=== PATIENT | female | born 1955 | race Caucasian/White ===

== ENCOUNTER → 2016-11-21 | Outpatient (CLI) | payer BC ==
[~2016-11-21] MED LIST: ACETAMINOPHEN-H1 TA2 PO; CRESTOR10 MG PO; LOSARTAN POTASS1 TAB PO; OMEPRAZOLE40 MG PO; VITAMIN D1000 IU PO; ZOFRAN4 MG PO
--- NOTE | 2016-11-21 16:59 | RADIOLOGY REPORT PS360 ---
US RUQ-(ABD LTD)1ORGAN/QUAD/FU ORDERING PHYSICIAN : Umer Schuster MD PATIENT AGE: 61 years GENDER: Female INDICATION: RUQ PAIN TECHNIQUE ultrasound right upper quadrant COMPARISON: February 2012 ultrasound] quadrant FINDINGS Pancreas. Overall Satisfactory moderate size throughout. Liver. No focal lesions. No biliary ductal dilatation. GALLBLADDER.: Shadowing gallstones. These have developed since previous 2011 study. The largest measuring just less than 1.4cm. . This stone initially seen towards fundus, then shifted towards the neck of the gallbladder on the latter images. Other smaller stones are also evident Borderline/mild diffuse gallbladder wall thickening. Common duct appears normal., normal measuring 4 mm Right kidney 11.1 cm length with cortex well-maintained. No hydronephrosis nor mass. -------IMPRESSION CHOLELITHIASIS. Multiple shadowing gallstones have developed & become apparent since 2011 study Upper normal gallbladder wall thickness Common duct normal. Liver & pancreas unremarkable.
== END ==
LOC: RAD 07:53
DX: R10.11 Right upper quadrant pain (principal)

== ENCOUNTER → 2016-12-17 | Outpatient (CLI) | payer BC ==
--- NOTE | 2016-12-17 14:11 | RADIOLOGY REPORT PS360 ---
PROCEDURE: 2-D M-mode and color Doppler study INDICATIONS FOR THE TEST: Chest pain COPD Heart Murmur Tobacco Smoking Palpitations Fatigue+ Syncope Edema+ Hypertension+Diabetes Mellitus Rheumatic Fever SOB+CINTRON Obesity+Hyperlipidemia+ Family History HD Additional History Sleep apnea PATIENT INFORMATION HEIGHT: 61 WEIGHT: 248 GENDER: Female B/P: 143/81 2-D/M-MODE INTERPRETATION: 2-D MEASUREMENTS OBSERVED VALUES IN CMS Right Ventricular Dimension (RVDd) 2.0 Interventricular Septum (Thickness)(IVsd) 1.2 Left Ventricular Internal Dimensions(LVIDd) 4.7 Left Ventricular Posterior Wall (Thickness)(LVPWd) 1.1 Aortic Root 2.0 Aortic Cusp Separation 2.0 Left Atrial Dimensions (LAD) 3.5 2D 1. Left atrium is normal size, left ventricle is normal size, there is mild concentric left ventricular hypertrophy present, visually estimated to fraction 55% with no obvious regional wall motion abnormality. 2. The right atrium is normal size, right ventricle is mildly enlarged with normal contractility. 3. The aortic valve is minimally thickened and fibrosed consistent mild aortic sclerosis. 4. The mitral and tricuspid valve is structurally normal. 5. The pulmonic valve is not well visualized. 6. No significant pericardial effusion noted. DOPPLER INTERROGATION: Doppler interrogation of the aortic mitral and tricuspid presence of mild mitral and tricuspid regurgitation, tricuspid regurgitant jet velocity insufficient for calculation of the right ventricular systolic pressure, grade 1 diastolic dysfunction seen without tissue Doppler evidence of raised left atrial pressure. CONCLUSION: 1. Normal left ventricular size, mild concentric left ventricular hypertrophy, preserved left ventricular systolic function, visually estimated ejection fraction 55% with no obvious regional wall motion abnormality, grade 1 diastolic dysfunction seen without tissue Doppler evidence of raised left atrial pressure. 2. Mildly enlarged right ventricle with normal contractility. 3. Mild mitral and tricuspid regurgitation. 4. No significant pericardial effusion noted.
== END ==
LOC: RT 09:55
DX: G47.33 Obstructive sleep apnea (adult) (pediatric) (principal); R53.83 Other fatigue; R06.83 Snoring; E78.5 Hyperlipidemia, unspecified; I10 Essential (primary) hypertension

== ENCOUNTER → 2016-12-19 | Outpatient (CLI) | payer BC ==
[2016-12-19 09:53] LABS: BUN 17 mg/dL (7-18)
[2016-12-19 09:54] LABS: GFR (ESTIMATED) 72 ML/MIN (59-)
== END ==
LOC: LAB 09:22
PROVIDERS: Internal Medicine Cardiovascular Disease
DX: G47.33 Obstructive sleep apnea (adult) (pediatric) (principal); R53.83 Other fatigue; R06.83 Snoring; I10 Essential (primary) hypertension; E78.5 Hyperlipidemia, unspecified

== ENCOUNTER 2017-01-18 09:38 | Emergency (ER) | payer BC ==
[~2017-01-18] VITALS: Ht 160 cm; Wt 112.0 kg
[2017-01-18] MEDS ORDERED: ACETAMINOPHEN-H1 TA2 PO (09:45)
[2017-01-18] MEDS ORDERED: OMEPRAZOLE40 MG PO (09:46)
[2017-01-18] MEDS ORDERED: CRESTOR10 MG PO (09:46)
[2017-01-18] MEDS ORDERED: LOSARTAN POTASS1 TAB PO (09:46)
[2017-01-18] MEDS ORDERED: VITAMIN D1000 IU PO (09:47)
--- NOTE | 2017-01-18 09:58 | Emergency Room Report ---
History of Present Illness Time Seen by 0950 Presenting Problem in Triage Pt arrived:Ambulance Stretcher Presenting Problem:PT REPORTS INCREASED RLQ ABD PAIN THAT BEGAN APPROX 0600 THAT IS SHARP/ STABBING IN NATURE. PT REPORTS SHE HAD A LAP CHOLEY ON 12/16/16 Onset of symptoms date/time:01/18/17 or onset unknown for: Treatment Prior to Arrival: SALINE LOCK, IVF, PHENEGRAN 25 MG IV ONCE LEVEL VIAL INSIDE GRINDER Provided by:INTELLIGENCE OFFICER Sepsis Risk Assessment: Temp: 98.2 B/P: 146/78 MAP: 100 Pulse: 63 Resp: 18 Recent fever? N Clinical Suspician of Infection? N Mental Status: 1 - Regular (Normal Baseline) Sepsis Risk:Low Sepsis Risk Have you (or family members/close friends) recently traveled outside the [place]? N If Yes, where/when: Have you had exposure to infectious disease within the past month? N TB? Other? Specify: Source patient, RN notes reviewed, family Exam Limitations no limitations Comment Pt had lap choley on 01/16/17 and now comes to the ED with worsening right sided abd pain that awakened her at 4AM. Got up , walked and took a pain pill. Has been trying to eat and drink but no BM since before surgery. NO fever and no vomiting at this time. Says the surgeon told her she had a small liver laceration that was cauterized at time of Lap choley Cardiac Chest Pain Chest pain indicative of cardiac No ALLERGIES Coded Allergies: tetracycline (I-RASH 01/16/17) Home Medications Reported Medications HYDROCODONE/ACETAMINOPHEN (Hydrocodon-Acetaminophen 5-325) 1 TAB PO Q6HP PRN POST OP PAIN #27 LOSARTAN/HYDROCHLOROTHIAZIDE (Losartan-Hctz 50-12.5 MG Tab) 1 TAB PO DAILY #30 Rosuvastatin Calcium (Crestor) 10 MG PO QHS #30 Omeprazole (Omeprazole 40MG) 40 MG PO DAILY #30 CHOLECALCIFEROL (VITAMIN D3) (Vitamin D3) 1,000 IUNITS PO DAILY History Medical History General CAD? No Angina: No [place]: No Hypertension? Yes Hyperlipidemia? Yes CHF? No COPD? No Asthma? No Hernia? Yes CVA? No Seizures? No Diabetes? No UTI? No Stones? No GB Disease: Yes Hepatitis? No Cataracts? No Glaucoma? No MRSA? No TB? No Cancer? No Immunization Hx DT/Tetanus > 10 Years Ago Flu Refused Pneumonia Never Had Surgical Hx Previous Surgery?Y Hysterect Tubal Ligation HEART CATH 2008 , Lap [place] Family History Family Hx Diabetes No CAD Yes Hypertension Yes Hyperlipidemia Yes Cancer Yes TB No Social History Smoking Hx Smoker: Never Smoker Tobacco: No Alcohol Alcohol: No Review of Systems All Other Systems Reviewed and Negative Constitutional see HPI Gastrointestinal see HPI Physical Exam Vital Signs Vital Signs Date Time Temp Pulse Resp B/P Pulse O2 O2 Flow FiO2 Ox Delivery Rate 01/18 1227 64 16 132/63 96 01/18 1157 60 18 127/73 97 01/18 1033 61 18 140/68 94 01/18 0939 98.2 63 18 146/78 95 General Appearance normal appearance, no apparent distress, obese Respiratory Status No: respiratory distress. Cardiovascular normal exam, regular rate/rhythm Gastrointestinal normal bowel sounds, normal exam, abnormal bowel sounds ( decreased), tenderness Neurologic alert, mortgage loan funder II-XII nml as tested Medical Decision Making LABS/Meds/Orders Pt receiving controlled substance in ED? No Results/Orders Laboratory Tests 01/18/17 1005: Amylase 23 L, Lipase 140 01/18/17 1005: Sodium 142, Potassium 3.7, Chloride 104, Carbon Dioxide 30, BUN 15, Creatinine 1.0, Estimated Creat Clear 102, Estimated GFR (MDRD) 56 L, Glucose 100, Calcium 8.6, Total Bilirubin 0.5, AST 17, ALT 47, Alkaline Phosphatase 81, Total Protein 6.9, Albumin 3.3 L, Globulin 3.6 H, Albumin/Globulin Ratio 0.9 L, WBC 12.7 H , RBC 4.19 L, Hgb 12.2, Hct 36.6 L, MCV 87.2, RDW 14.1, Plt Count 277, MPV 5.9 L, Gran % 72.4, Gran # 9.2 H, Lymphocytes % 21.7, Monocytes % 5.2, Eosinophils % 0.5, Basophils % 0.2, Lymphocytes # 2.8, Monocytes # 0.7, Eosinophils # 0.1, Basophils # 0.0, PUBS MCHC 33.7, MCH 29.4 Current Medication Orders Sig/Sol Start time Last Medication Dose Route Stop Time Status Admin Ondansetron HCl 4 MG ONCE ONE 01/18 1030 DC 01/18 IV 01/18 1031 1031 Sodium Chloride 1,000 ML .Q4H 01/18 1030 AC 01/18 IV 01/18 1429 1030 Sodium Chloride 10 ML PRN PRN 01/18 1030 AC IV 01/19 1026 Ondansetron HCl 0 .STK-MED ONE 01/18 1027 DC .ROUTE Sodium Chloride 1,000 ML .STK-MED ONE 01/18 1027 DC IV Sodium Chloride 10 ML PRN PRN 01/18 0945 AC IV 01/19 0941 Orders Procedure Date/time Status DIET-NOTHING BY MOUTH 01/[address] ABD & PELVIS W/O CONTRAST 01/[address] ABD/PELVIS REQ 01/18 1027 Complete LIPASE 01/18 1008 Complete AMYLASE 01/18 1008 Complete IV SALINE LOCK 01/18 0941 Active CBC WITH AUTO DIFF 01/18 0941 Complete CHEM 12 PROFILE 01/18 0941 Complete XRAY/CT/US XRAY/CT/US CT abdomen, pelvis CT interpretation by discussed w/radiologist Time results known: 1333 CT Results Mild haze in GB fossa but no abscess and nothing acute...? absorbable gauze under liver where she had a small liver lac Departure Departure Time of Disposition 1334 Disposition DC Home or Self Care(routine) Clinical Impression Primary Impression: Postoperative abdominal pain Condition STABLE Referrals Colin BRAUN,A.C. (Family): 2 Days-Call Office Patient Instructions DI for Abdominal Pain-Adult Additional Instructions Take meds as directed. Drink lots of fluids and followup with PCP or Surgeon as needed. Return to the ED with any worsening symptoms...fever, vomting, etc. Discharge Counseling Counseled pt/family regarding diagnosis, test results, medications/RX, home care, follow up needs Prescriptions Current Visit Scripts ONDANSETRON HCL (Zofran 4MG Tab) 4 MG PO Q6HP PRN NAUSEA AND VOMITING #40 TAB ED Critical Care Critical Care No If Critical Care minutes are documented, the time involved in the performance of seperately reportable procedures was not counted toward critical care time documented. I directly delivered medical care to this critically ill and/or injured patient. Timely evaluation and treatment was necessary to address the significant organ system(s) dysfunction present in this patient. at 1337
[2017-01-18 10:27] LABS: LYMPH # 2.8 K/mm3 (0.7-4.5); LYMPH % 21.7 % (10-50.0)
[2017-01-18 10:33] LABS: HEMOGLOBIN 12.2 g/dL (12.2-16.2)
[2017-01-18] MEDS ORDERED: ZOFRAN4 MG PO (13:36)
[2017-01-18 14:08] VITALS: BP 117/70
--- NOTE | 2017-01-18 14:14 | RADIOLOGY REPORT PS360 ---
CT ABD PELVIS W/O CONTRAST COMPARISON: Ultrasound right upper quadrant 11/21/2016 HISTORY: Abdominal pain postop lap cholecystectomy TECHNIQUE: Multiaxial scans obtained from the hemidiaphragms the pelvic floor and were performed without IV or oral contrast. Sagittal coronal reformatted images were evaluated as well. FINDINGS: Scans through the lower chest show discoid atelectasis right perihilar region. There is mild generalized cardio megaly. The liver is normal in size. There is a hypodense possible sponge impressing upon the anterior border of the left lobe of the liver presumably postsurgical treatment for laceration of the liver which occurred during surgery. The stomach spleen and pancreas appear normal. There is a surgical clip in the gallbladder bed with minimal hazy stranding of the fat around the gallbladder bed consistent with recent surgery. The adrenal glands are normal. The kidneys are normal size and there are no calculi and is no obstructive uropathy of either kidney. Small bowel is normal. The appendix is normal. There is large amount stool in the cecum and ascending colon. Minimal scattered stool throughout remainder of the colon. There has been a previous hysterectomy. Urinary bladder appears normal. There is no free fluid in the pelvis. IMPRESSION: Postop recent lap cholecystectomy with no definite evidence of significant trauma to the liver but with a postop compression sponge in place. There is no evidence of bile leak and is no other significant abnormality noted.
== END 2017-01-18 14:12 | disposition home or self-care (01) ==
LOC: ER 09:38
PROVIDERS: General Practice
DX: G89.18 Other acute postprocedural pain (principal); R10.31 Right lower quadrant pain
CPT/HCPCS: J2405

== ENCOUNTER 2017-07-04 09:02 | Emergency (ER) | payer BC ==
[~2017-07-04] VITALS: Ht 160 cm; Wt 108.9 kg
[2017-07-04] MEDS ORDERED: ZITHROMAX Z-PA250 M2 PO (09:23)
[2017-07-04] MEDS ORDERED: TESSALON PERLE100 M1 PO (09:23)
--- NOTE | 2017-07-04 09:24 | Urgent Treatment Center Report ---
History of Present Issue Date/Time Seen by Provider 07/04/17 0915 Visit Reason Pt arrived:Walked Presenting Problem:PT C/O FEVER, COUGH, CONGESTION, HEADACHE SINCE YESTERDAY Location if Accident: Onset of symptoms date/time:/ or onset unknown for:MEDICAL HX UNKNOWN Have you (or family members/close friends) recently traveled outside the [place]? N If Yes, where/when: Have you had exposure to infectious disease within the past month? TB? Other? Specify: Source patient Exam Limitations no limitations Comment 62-year-old female presents for body aches, fever, chills, coughing up green- yellow sputum, and headache that started yesterday. ALLERGIES Coded Allergies: tetracycline (I-RASH 01/16/17) Home Medications Reported Medications LOSARTAN/HYDROCHLOROTHIAZIDE (Losartan-Hctz 50-12.5 MG Tab) 1 TAB PO DAILY #30 Rosuvastatin Calcium (Crestor) 10 MG PO QHS #30 Omeprazole (Omeprazole 40MG) 40 MG PO DAILY #30 CHOLECALCIFEROL (VITAMIN D3) (Vitamin D3) 1,000 IUNITS PO DAILY History Medical History General CAD? No Angina: No [place]: No Hypertension? Yes Hyperlipidemia? Yes CHF? No DVT? No PE? No COPD? No Asthma? No Anemia? No GERD? No Gastric ulcers? No GI Bleed? No Hernia? Yes Thyroid Problems? No Hypothyroidism? No CVA? No Seizures? No Diabetes? No Renal Insuffiency? No UTI? No Stones? No BPH? No GB Disease: Yes Nephritic Syndrome? No Asplenia? No Hepatitis? No Sickle Cell Disease? No Arthritis? No Migraines? No Cataracts? No Glaucoma? No MRSA? No HIV? No TB? No Anxiety? No Depression? No Cancer? No More? No Immunization HX DT/Tetanus > 10 Years Ago Flu Refused Pneumonia Never Had Surgical Hx Previous Surgery?Y Hysterect Tubal Ligation HEART CATH 2007 LEFTY WALKER Family History Family HX Diabetes No CAD Yes Hypertension Yes Hyperlipidemia Yes Cancer Yes TB No Social History Smoking Hx Smoker: Never Smoker Tobacco: No Alcohol Alcohol: No Review of Systems All Other Systems Reviewed and Negative Respiratory see HPI, cough Physical Exam Vital Signs Vital Signs Date Time Temp Pulse Resp B/P Pulse O2 O2 Flow FiO2 Ox Delivery Rate 07/04 0946 99.2 105 16 135/76 98 07/04 0908 99.2 105 16 135/76 98 - WBC >12,000 or <4,000 or 10% bands? 2 or more SIRS Criteria Met? B/P:135/76 MAP:95 Creatinine >2.0? UA output<0.5ml/kg/hr for 2 hrs? Platelet count >100,000? Lactate >2.0mmol/1? INR >1.2 or PTT > than 60 sec? Evidence of Organ Dysfunction? Provider documented clinical suspician of infection? Sepsis Criteria Count: 1 Sepsis Risk: General Appearance normal appearance, no apparent distress Eye Exam - bilateral eye normal exam, bilateral eye PERRL, bilateral eye EOMI Ear, Nose, Throat hearing grossly normal, normal ENT inspection, normal pharynx, sinus pain/drainage, nasal congestion Neck normal inspection, full range of motion Respiratory Status Yes: trachea midline, chest symmetrical, non tender chest. No: respiratory distress. Lung Sounds anterior: lungs clear. posterior: lungs clear, decreased breath sounds. left: lungs clear. right: decreased breath sounds. Cardiovascular normal exam, regular rate/rhythm, no peripheral edema Peripheral Pulses Pulses normal No Gastrointestinal normal bowel sounds Back normal inspection Neurologic alert, normal exam, oriented x 3 Medical Decision Making LABS/Meds/Orders Pt receiving controlled substance in ED? No Results/Orders Laboratory Tests 07/04/17 0915: Influenza Type A Ag NOT DETECTED, Influenza Type B Ag NOT DETECTED Current Medication Orders Sig/Sol Start time Last Medication Dose Route Stop Time Status Admin Ceftriaxone Sodium 0 .STK-MED ONE 07/04 948 DC .ROUTE Lidocaine HCl 0 .STK-MED ONE 07/04 948 DC .ROUTE Dexamethasone Sodium 0 .STK-MED ONE 07/04 947 DC Phosphate .ROUTE Ceftriaxone Sodium 1 GM ONCE ONE 07/04 945 DC 07/04 IM 07/04 946 0950 Dexamethasone Sodium 4 MG ONCE ONE 07/04 945 DC 07/04 Phosphate IM 07/04 946 0950 Lidocaine HCl 0 ONCE ONE 07/04 945 DC 07/04 IM 07/04 946 0950 Orders Procedure Date/time Status INFLUENZA A&B ANTIGENS 07/04 915 Complete Procedures Laceration/Wound Repair Laceration/Wound Repair Risks/benefits discussed with pt/guardian? No Tetanus status none done Wound Location no wound Wound Length (cm) 0 Wound's Depth, Shape no wound will not let me sign with out charting Wound Explored no wound Wound Prep Other Wound Debrided none Wound Repaired With none-na Sterile Dressing Applied No Departure Departure Time of Disposition 918 Disposition DC Home or Self Care(routine) Clinical Impression Primary Impression: Acute bronchitis Qualifiers: Bronchitis organism: unspecified organism Qualified Code: J20.9 - Acute bronchitis, unspecified Condition STABLE Referrals Colin BRAUN,A.C. (Family) Patient Instructions Acute Bronchitis, DI for Acute Bronchitis Additional Instructions Follow-up with PCP this week Tylenol Motrin as needed for fever or pain Medications as ordered rest Symptoms worsen or do not improve return or be seen in the ER Discharge Counseling Counseled pt/family regarding diagnosis, medications/RX, home care, follow up needs Prescriptions Current Visit Scripts Azithromycin (Zithromax) 250 MG PO DAILY #6 TAB USE DIRECTED. Benzonatate (Tessalon Perle) 100 MG PO BID 3 Days
[2017-07-04 09:46] VITALS: BP 135/76
== END 2017-07-04 10:03 | disposition home or self-care (01) ==
LOC: UTC 09:02
DX: J20.9 Acute bronchitis, unspecified (principal); E78.5 Hyperlipidemia, unspecified; I10 Essential (primary) hypertension; Z88.1 Allergy status to other antibiotic agents